=== PATIENT | male | born 1965 | race African-American/Black ===

== ENCOUNTER 2016-11-20 13:41 | Outpatient (CLI) | payer MEDICARE, OTHER ==
[~2016-11-20 13:41] MED LIST: AMLODIPINE BESYL5 MG ORAL; LOSARTAN POTASS50 MG ORAL; PREDNISONE5 M4 PO
[2016-11-20 14:00] VITALS: BP 113/70
--- NOTE | 2016-11-20 15:00 | GI Progress Note ---
Assessment/Plan Problems: (1) Constipation ICD Codes: K59.00 - Constipation, unspecified SNOMED: 83047970 (2) Rectal bleed ICD Codes: K62.5 - Hemorrhage of anus and rectum SNOMED: 72372396 (3) HTN (hypertension) ICD Codes: I10 - HTN (hypertension) SNOMED: 28397972 (4) GERD (gastroesophageal reflux disease) ICD Codes: K21.9 - GERD (gastroesophageal reflux disease) SNOMED: 748850051 Status: stable Status Narrative Seen with Dr. Jacques. Assessment/Plan colonoscopy scheduled 11/25/16 - CLD & prep instructions given and acknowledged. Rx trial movantik Subjective Subjective constipation, straining required & stool very hard rectal bleed nausea symptoms x 1 month Objective Last 24 Hour Vital Signs Date Time Temp Pulse Resp B/P Pulse Ox O2 Delivery O2 Flow Rate FiO2 11/20/16 14:00 98.7 77 16 113/70 98 General Appearance: no apparent distress, alert Cardiovascular: normal rate, regular rhythm Respiratory/Chest: lungs clear, normal breath sounds, no respiratory distress Abdominal Exam: normal bowel sounds, non tender, soft Extremities: normal range of motion Elba Brewer NTyesha Nov 20, 2016 15:00
[2016-11-20] MEDS ORDERED: HYDROCHLOROTHIA25 MG ORAL (15:02)
[2016-11-20] MEDS ORDERED: NORCO 5-325 TA1 EACH ORAL (15:02)
[2016-11-20] MEDS ORDERED: ASPIR 8181 MG ORAL (15:02)
== END 2016-11-20 14:10 | disposition home or self-care (01) ==
LOC: PAN 13:41
DX: K59.00 Constipation, unspecified (principal); K62.5 Hemorrhage of anus and rectum; I10 Essential (primary) hypertension; K21.9 Gastro-esophageal reflux disease without esophagitis
CPT/HCPCS: 99211

== ENCOUNTER 2016-11-25 07:37 | Day surgery (SDC) | payer MEDICARE, OTHER ==
[2016-11-25] VITALS (8 sets, daily range): BP systolic 110–127; BP diastolic 68–80
[~2016-11-25] VITALS: Ht 188 cm; Wt 122.5 kg
[~2016-11-25 07:37] MED LIST changes: +ASPIR 8181 MG ORAL; +HYDROCHLOROTHIA25 MG ORAL; +NORCO 5-325 TA1 EACH ORAL
[2016-11-25] MEDS ORDERED: SILDENAFIL20 MG ORAL (08:20)
[2016-11-25] MEDS ORDERED: CRESTOR10 M2 ORAL (08:22)
[2016-11-25] MEDS ORDERED: Alfentanil 2ml Inj ONE (09:30)
[2016-11-25] MEDS ORDERED: Lidocaine 1% MPF 10mg/ml 5ml ONE (09:30)
[2016-11-25] MEDS ORDERED: LR 1000ml ONE (09:30)
[2016-11-25] MEDS ORDERED: Propofol 10mg/ml 20ml IV ONE (09:30)
--- NOTE | 2016-11-25 09:46 | Pre-Procedure Note/Attestation ---
Pre-Procedure Note/Attestation Complete Prior to Procedure Planned Procedure: not applicable Procedure Narrative: colonoscopy Indications for Procedure Pre-Operative Diagnosis: rectal bleed Attestation I attest that I discussed the nature of the procedure; its benefits; risks and complications; and alternatives (and the risks and benefits of such alternatives ), prior to the procedure, with the patient (or the patient's legal manufacturer representative). I attest that, if there was a reasonable possibility of needing a blood transfusion, the patient (or the patient's legal manufacturer representative) was given the [facility] standardized written summary, pursuant to the [place]il[place] Frandy Blood Safety Act ([place] Health and Safety Code # 1645, as amended). I attest that I re-evaluated the patient just prior to the surgery and that there has been no change in the patient's H&P, except as documented below: MARISELA CABRALES Nov 25, 2016 09:46
--- NOTE | 2016-11-25 09:47 | Short Stay Surgery H&P ---
History of Present Illness History of Present Illness Chief Complaint see recent consult note HPI Ziyad Darden is a 51 year old male who was admitted on for Constipation Patient History Allergies: Coded Allergies: PEANUT (Verified Allergy, Severe, Anaphylaxis, 10/22/13) Uncoded Allergies: PEANUTS (Allergy, Mild, 10/22/13) ORAL ITCHING AND THROAT SWELLS UP PAST MEDICAL HISTORY: Past Surgeries: Social History: Medication History Scheduled Amlodipine Besylate* (Amlodipine Besylate*), 5 MG ORAL DAILY, (Reported) Aspirin* (Aspir 81*), 81 MG ORAL DAILY, (Reported) Hydrochlorothiazide* (Hydrochlorothiazide*), 25 MG ORAL DAILY, (Reported) Losartan Potassium* (Losartan Potassium*), 50 MG ORAL DAILY, (Reported) Rosuvastatin Calcium* (Crestor*), 10 MG ORAL DAILY, (Reported) Sildenafil Citrate (Sildenafil), 20 MG ORAL , (Reported) Scheduled PRN Hydrocodone Bit/Acetaminophen 5-325* ([place] 5-325*), 1 TAB ORAL Q4H PRN, ( Reported) Physical Exam Vital Signs Last Vital Signs Date Time Temp Pulse Resp B/P Pulse Ox O2 Delivery O2 Flow Rate FiO2 11/25/16 08:30 98.1 70 20 112/72 97 Room Air Plan Attestation Are the patient's medical conditions optimized for surgery? MARISELA CABRALES Nov 25, 2016 09:47
[2016-11-25] MEDS ORDERED: LR 1000ml 1,000 ML IVLG SCH (09:58)
--- NOTE | 2016-11-25 09:58 | Anethesia Preoperative Eval ---
Anesthesia Pre-op PMH/ROS General Date of Evaluation: Nov 25, 2016 Time of Evaluation: 09:27 Anesthesiologist: Maria Luisa ASA Score: ASA 3 Mallampati Score Class I : Soft palate, uvula, fauces, pillars visible Class II: Soft palate, uvula, fauces visible Class III: Soft palate, base of uvula visible Class IV: Only hard plate visible Mallampati Classification: Class III Surgeon: Georgie Diagnosis: Abd Pain Surgical Procedure: Colonoscopy Anesthesia History: none Family History: no anesthesia problems Allergies: Coded Allergies: PEANUT (Verified Allergy, Severe, Anaphylaxis, 10/22/13) Uncoded Allergies: PEANUTS (Allergy, Mild, 10/22/13) ORAL ITCHING AND THROAT SWELLS UP Medications: see eMAR Past Medical History Cardiovascular: Reports: HTN, other - HL Pulmonary: Reports: other - Bronchitis Gastrointestinal/Genitourinary: Reports: GERD Other: obesity - BMI 34.7 Anesthesia Pre-op Phys. Exam Physician Exam Last Vital Signs Date Time Temp Pulse Resp B/P Pulse Ox O2 Delivery O2 Flow Rate FiO2 11/25/16 08:30 98.1 70 20 112/72 97 Room Air Constitutional: NAD Neurologic: CN 2-12 intact Cardiovascular: RRR Respiratory: CTA Gastrointestinal: S/NT/ND Airway Exam Mallampati Score: Class III MO: limited ROM: full Teeth: intact Anesthesia Pre-op A/P Risk Assessment & Plan Assessment: ASA 3 Plan: GA Status Change Before Surgery: No Keaton Glass MD Nov 25, 2016 09:58
[2016-11-25] MEDS ORDERED: fentaNYL 100 mcg/2 mL IV PRN (10:00)
[2016-11-25] MEDS ORDERED: Ketorolac 60mg Inj IV PRN (10:00)
[2016-11-25] MEDS ORDERED: Oxycodone/Acetaminophen 5-325 ORAL PRN (10:00)
[2016-11-25] MEDS ORDERED: Hydromorphone 0.5mg/0.5ml inj IVP PRN (10:00)
[2016-11-25] MEDS ORDERED: DiphenhydrAMINE 50mg/ml Inj IVP PRN (10:00)
[2016-11-25] MEDS ORDERED: LORazepam Inj 2mg/ml 1ml IV PRN (10:00)
[2016-11-25] MEDS ORDERED: Meperidine 25mg/0.5ml Inj (FOR RIGORS ONLY) IV PRN (10:00)
[2016-11-25] MEDS ORDERED: Norco 5mg/325mg tab ORAL PRN (10:00)
[2016-11-25] MEDS ORDERED: Midazolam 2mg/2ml Inj IVP PRN (10:00)
[2016-11-25] MEDS ORDERED: Ketorolac 30mg Inj IV PRN (10:00)
[2016-11-25] MEDS ORDERED: Metoclopramide 10mg/2ml Inj IVP PRN (10:00)
[2016-11-25] MEDS ORDERED: Atropine Inj 1mg/10ml Syr IV PRN (10:00)
[2016-11-25] MEDS ORDERED: Norco 7.5mg/325mg tab ORAL PRN (10:00)
--- NOTE | 2016-11-25 10:03 | Endoscopy Procedure Note ---
Endoscopy Procedure Note Indication for Procedure: rectal bleed Procedures Performed: colonoscopy Operative Findings/Diagnosis: 2 polyps Specimen: yes Pt Tolerated Procedure Well: Yes Estimated Blood Loss: none Anesthesiologist: kinjal Anesthesia: MAC Implant(s) used?: No 50 yrs or older w/o bx or poly: No 10yrs. F/U not recommended: Yes If not recommended, why?: Above average risk 10 yrs. F/U needed: Yes 18 years or older w/prev. colo: Yes <3yrs. since last colonoscopy: No MARISELA CABRALES Nov 25, 2016 10:03
--- NOTE | 2016-11-25 10:03 | Immediate Post-Op Evaluation ---
Immediate Post-Op Evalulation Immediate Post-Op Evalulation Procedure: Colonoscopy Date of Evaluation: Nov 25, 2016 Time of Evaluation: 10:29 IV Fluids: 350 LR Blood Products: 0 Estimated Blood Loss: 1 Urinary Output: 0 Blood Pressure Systolic: 127 Blood Pressure Diastolic: 80 Pulse Rate: 72 Respiratory Rate: 16 O2 Sat by Pulse Oximetry: 98 Temperature (Fahrenheit): 97.6 Pain Score (1-10): 1 Nausea: No Vomiting: No Complications 0 Patient Status: awake, reacts, patent, none Hydration Status: adequate Keaton Glass MD Nov 25, 2016 10:03
--- NOTE | 2016-11-25 10:03 | 48 Hour Post Anesthesia Eval ---
Post Anesthesia Evaluation Procedure: Colonoscopy Date of Evaluation: Nov 25, 2016 Time of Evaluation: 12:42 Blood Pressure Systolic: 118 0: 82 Pulse Rate: 74 Respiratory Rate: 16 Temperature (Fahrenheit): 98.2 O2 Sat by Pulse Oximetry: 98 Airway: patent Nausea: No Vomiting: No Pain Intensity: 1 Hydration Status: adequate Cardiopulmonary Status: Stable Mental Status/LOC: patient returned to baseline Follow-up Care/Observations: 0 Post-Anesthesia Complications: 0 Follow-up care needed: ready to discharge Keaton Glass MD Nov 25, 2016 10:03
--- NOTE | 2016-11-25 11:45 | Procedure Note ---
DATE OF PROCEDURE: 11/25/2016 SURGEON: Drake Jacques M.D. PROCEDURE: Colonoscopy with biopsy. ANESTHESIOLOGIST: Keaton Glass M.D. INSTRUMENT: Olympus adult flexible colonoscope. INDICATION: Rectal bleeding. REASON FOR PROCEDURE: The procedure, risks, benefits, and possible consequences, including hemorrhage, aspiration, perforation and infection, and alternative treatments, were explained to the patient/legal guardian by Dr. Drake Jacques and the patient/legal guardian understood and accepted these risks. PROCEDURE: After informed consent was obtained and the patient was adequately sedated, first rectal exam was performed, which shows positive for internal hemorrhoids. Then, the scope was advanced from the rectum into the cecum, documented by appendiceal orifice, ileocecal valve, and right upper quadrant palpation. Quality of prep was very good. The patient had two polyps in the rectosigmoid area, diminutive polyp removed with cold biopsy forceps technique. The patient has a sigmoid diverticulosis. No obvious diverticulitis. The rest of the colonic examination grossly within normal limits. Retroflexion of rectum showed evidence of medium-sized internal hemorrhoids. SUMMARY OF FINDINGS: 1. Two colonic polyps removed, see above for details. 2. Internal hemorrhoids. 3. Diverticulosis. RECOMMENDATIONS: 1. Followup biopsy results and treat accordingly. 2. We will recommend repeat colonoscopy in five years. 3. The patient had the last colonoscopy was over three years. Drake Jacques M.D. DR: GRISELDA JOB#: [id number] CC:
--- NOTE | 2016-11-27 16:53 | Cardiology Report ---
APPROVED REPORT EKG Measurement Heart [id number] Normal sinus rhythm Normal ECG
== END 2016-11-25 11:25 | disposition home or self-care (01) ==
LOC: GAS 07:37
DX: K62.5 Hemorrhage of anus and rectum (principal); D12.5 Benign neoplasm of sigmoid colon; K64.8 Other hemorrhoids; K57.30 Diverticulosis of large intestine without perforation or abscess without bleeding; K21.9 Gastro-esophageal reflux disease without esophagitis; I10 Essential (primary) hypertension; E78.5 Hyperlipidemia, unspecified; J40 Bronchitis, not specified as acute or chronic; E66.9 Obesity, unspecified; Z68.34 Body mass index [BMI] 34.0-34.9, adult; Z79.82 Long term (current) use of aspirin; Z79.899 Other long term (current) drug therapy; Z91.010 Allergy to peanuts
CPT/HCPCS: 93005; 94003; 94150; J3490

== ENCOUNTER → 2016-12-10 | Outpatient (CLI) | payer MEDICARE, OTHER ==
[~2016-12-10] MED LIST changes: +CRESTOR10 M2 ORAL; +SILDENAFIL20 MG ORAL
[2016-12-10 09:37] VITALS: BP 120/74
--- NOTE | 2016-12-10 09:52 | GI Progress Note ---
Assessment/Plan Problems: (1) Colonic polyp ICD Codes: K63.5 - Polyp of colon SNOMED: 08654935 (2) Constipation ICD Codes: K59.00 - Constipation, unspecified SNOMED: 24108365 (3) Rectal bleed ICD Codes: K62.5 - Hemorrhage of anus and rectum SNOMED: 26204955 (4) GERD (gastroesophageal reflux disease) ICD Codes: K21.9 - GERD (gastroesophageal reflux disease) SNOMED: 302272718 Status: stable Status Narrative Discussed with Dr. Jacques. Assessment/Plan s/p COLONOSCOPY SUMMARY OF FINDINGS: 1. Two colonic polyps removed, see full report. 2. Internal hemorrhoids. 3. Diverticulosis. RECOMMENDATIONS: 1. Followup biopsy results and treat accordingly. >> tubular adenoma 2. We will recommend repeat colonoscopy in five years. 3. RTC prn Subjective Subjective colonoscopy review denies abdominal pain constipation rectal bleed / nausea resolved Objective Last 24 Hour Vital Signs Date Time Temp Pulse Resp B/P Pulse Ox O2 Delivery O2 Flow Rate FiO2 12/10/16 09:37 97.9 76 16 120/74 General Appearance: no apparent distress, alert Cardiovascular: normal rate Respiratory/Chest: normal breath sounds, no respiratory distress Abdominal Exam: normal bowel sounds, non tender, soft Extremities: normal range of motion Elba Brewer N.P. Dec 10, 2016 09:52
== END | disposition home or self-care (01) ==
LOC: PAN 09:28
DX: K63.5 Polyp of colon (principal); K59.00 Constipation, unspecified; K62.5 Hemorrhage of anus and rectum; K21.9 Gastro-esophageal reflux disease without esophagitis
CPT/HCPCS: 99211